=== PATIENT | female | born 1950 | race Caucasian/White ===

== ENCOUNTER 2017-09-08 11:30 | Inpatient (IN) | payer OTHER ==
[~2017-09-08] VITALS: Ht 165.1 cm; Wt 70.3 kg
[~2017-09-08 11:30] MED LIST: IBERSANTAN PO; TAPAZOLE5 M1 PO
== END 2017-09-15 10:58 | disposition home or self-care (01) | DRG 331 ==
LOC: O/R 09-12 05:50 → SURG 09-12 05:50 → SURH 09-12 11:30 → SURG 09-12 20:41
PROVIDERS: Colon & Rectal Surgery
PROC: 0DJD8ZZ Inspection of Lower Intestinal Tract, Via Natural or Artificial Opening Endoscopic (ICD-10-PCS; 2017-09-12)
PROC: 0DTN4ZZ Resection of Sigmoid Colon, Percutaneous Endoscopic Approach (ICD-10-PCS; principal; 2017-09-12 13:15)
PROC: 3E0F7GC Introduction of Other Therapeutic Substance into Respiratory Tract, Via Natural or Artificial Opening (ICD-10-PCS; 2017-09-13)
PROC: 4A033R1 Measurement of Arterial Saturation, Peripheral, Percutaneous Approach (ICD-10-PCS; 2017-09-14)
DX: K57.32 Diverticulitis of large intestine without perforation or abscess without bleeding (principal); J45.998 Other asthma; R06.02 Shortness of breath; D64.89 Other specified anemias